=== PATIENT | male | born 1980 | race Caucasian/White ===

== ENCOUNTER 2018-05-02 21:20 | Emergency (ER) | payer OTHER ==
[~2018-05-02] VITALS: Ht 177.8 cm; Wt 96.0 kg
[2018-05-03] MEDS ORDERED: SODIUM CHLORIDE 0.9% 1,000 ML IV ONE ×2 (01:18→05:13)
[2018-05-03] MEDS ORDERED: MORPHINE SULFATE 4 MG/ML CPJ (NOT FOR IM USE) IV STA (01:18)
[2018-05-03] MEDS ORDERED: ONDANSETRON HCL 4MG/2ML VIAL IV STA (01:18)
[2018-05-03 01:43] LABS: BASOPHILS % 0.7 % (0.0-2.0); EOSINOPHILS % 0.7 % (0.0-5.0); HEMATOCRIT. 44.2 % (42.0-52.0); LYMPHOCYTES % 16.4 % (20.0-50.0); MEAN CORPUSCULAR HEMOGLOBIN 29.1 pg (28.0-32.0); MEAN CORPUSCULAR VOLUME 85.7 fL (80.0-94.0); MEAN PLATELET VOLUME 8.6 fl (7.4-10.4); MONOCYTES % 5.8 % (2.0-8.0); NEUTROPHILS % 76.4 % (40.0-76.0); PLATELET 291 x1000/uL (130-400); RED BLOOD CELL COUNT 5.16 mill/uL (4.7-6.1); RED CELL DISTRIBUTION WIDTH 14.2 % (11.6-14.6)
[2018-05-03 01:50] LABS: CHLORIDE 106 mEq/L (98-107)
[2018-05-03] MEDS ORDERED: IOHEXOL-300 100 ML BOTTLE ONE (03:32)
[2018-05-03 06:00] VITALS: BP 129/77
[2018-05-03] MEDS ORDERED: MORPHINE SULFATE 4 MG/ML CPJ (NOT FOR IM USE) IV ONE (06:45)
[2018-05-03] MEDS ORDERED: ONDANSETRON HCL 4MG/2ML VIAL IV ONE (06:45)
== END 2018-05-03 06:52 | disposition short-term general hospital (02) ==
LOC: ER 23:07
DX: M25.572 Pain in left ankle and joints of left foot (principal); M54.5 Low back pain; W11.XXXA Fall on and from ladder, initial encounter; Y93.9 Activity, unspecified; Y92.9 Unspecified place or not applicable
CPT/HCPCS: 36415; 70450; 71045; 71260; 72125; 72170; 73590; 73610; 73630; 74177; 80048; 85025; 96374; 96375; 99291; J2270; J2405; J7030; Q9967